=== PATIENT | female | born 1960 | race Caucasian/White ===

== ENCOUNTER 2021-08-07 16:37 | Emergency (ER) | payer OTHER ==
[~2021-08-07] VITALS: Ht 165.1 cm; Wt 106.5 kg
[2021-08-07] MEDS ORDERED: ACETAMINOPHEN 500 MG TABLET PO ONE (17:15)
[2021-08-07] MEDS ORDERED: IV RINGERS SOLUTION,LACTATED 1,000 ML IV ONE (17:15)
[2021-08-07] MEDS ORDERED: IOHEXOL 300 MG/ML 75 ML VIAL. IV ONE (17:15)
[2021-08-07] MEDS ORDERED: ONDANSETRON PF 4 MG/2 ML VIAL. IVP ONE (17:15)
[2021-08-07] MEDS ORDERED: DICYCLOMINE 20 MG/2 ML VIAL. IM ONE (17:15)
--- NOTE | 2021-08-07 17:27 | PHYS DOC ---
Past History Past Surgical History: , Knee Replacement (SAMY CARDENAS MD) Alcohol Use: None (SAMY CARDENAS MD) Adult General Chief Complaint Chief Complaint: ABDOMINAL PAIN HPI HPI The patient is a 61-year-old female with a history of hypertension, hyperlipidemia and insulin-dependent diabetes. She has no history of abdominal surgery in the past. She presents for evaluation of copious watery diarrhea today, about 10 episodes in total, the last few of which have had some partha blood in them. Associated nausea all day with 1 episode of nonbloody vomiting this morning. Associated low abdominal crampy discomfort, intermittent. No associated fevers, hematemesis or melena, upper respiratory congestion/rhinorrhea, cough, sore throat, shortness of breath or chest pain of any kind, specifically upper or right-sided abdominal pain of any kind, flank p ain, midline back pain, dysuria, hematuria, polyuria or oliguria, recent unusual travel, unusual foods, sick contacts with similar symptoms, recent antibiotic use. Patient is alert and pleasantly and appropriately interactive and in no acute distress with appropriate vital signs upon initial evaluation here in the emergency department. She is ambulatory with a narrow, steady gait to her emergency department bed. (SAMY CARDENAS MD) Review of Systems Review of Systems A 12 point review of systems was completed and was negative except where noted in HPI above. (SAMY CARDENAS MD) Current Medications Current Medications Current Medications Medications (Trade) Dose Ordered Sig/Nathaly Start Time Stop Time Status Last Admin Dose Admin Acetaminophen (Tylenol) 1,000 mg 1X ONCE 08/07/21 17:15 08/07/21 17:16 UNV Dicyclomine HCl (Bentyl) 20 mg 1X ONCE 08/07/21 17:15 08/07/21 17:16 UNV Iohexol (Omnipaque 300 Mg/ml) 75 ml 1X ONCE 08/07/21 17:15 08/07/21 17:16 UNV Lactated Ringer's 1,000 ml @ 999 mls/hr 1X ONCE 08/07/21 17:15 08/07/21 18:15 UNV Ondansetron HCl (Zofran) 4 mg 1X ONCE 08/07/21 17:15 08/07/21 17:16 UNV (SAMY CARDENAS MD) Allergies Allergies Allergies Coded Allergies Type Severity Reaction Last Updated Verified No Known Drug Allergies 1/19/22 No (SAMY CARDENAS MD) Physical Exam Physical Exam 61-year-old female appearing nontoxic and in no acute distress. Head is normocephalic and atraumatic. Neck is supple and nontender. Oropharynx is moist. Lungs are clear to auscultation at all stations. There is normal S1 and S2 without rubs or gallops and capillary refill is appropriate, less than 2 seconds globally. Abdomen is soft, nontender and nondistended. No reproducible tenderness to palpation anywhere. Skin is warm and dry without cyanosis, clubbing or edema. Psychiatrically, the patient demonstrates appropriate mood and affect and is alert. Evaluation of the extremities reveals BUEs and BLEs neurovascularly intact distally with strength 5 out of 5, sensation intact to l ight touch in all nerve distributions, radial, DP and PT pulses 2+ bilaterally, capillary refill less than 2 seconds, hands and feet warm and well-perfused. No dependent peripheral edema distally. No calf tenderness or swelling bilaterally. Homans test is negative bilaterally. (SAMY CARDENAS MD) Current Patient Data Vital Signs Vital Signs Date Time Temp Pulse Resp B/P (MAP) Pulse Ox O2 Delivery O2 Flow Rate FiO2 08/07/21 16:49 98.5 96 16 130/77 (94) 98 Room Air (SAMY CARDENAS MD) EKG EKG [] (SAMY CARDENAS MD) Radiology/Procedures Radiology/Procedures [] (SAMY CARDENAS MD) Heart Score Risk Factors: Risk Factors: DM, Current or recent (<one month) smoker, HTN, HLP, family history of CAD, obesity. Risk Scores: Risk Factors: DM, Current or recent (<one month) smoker, HTN, HLP, family history of CAD, obesity. (SAMY CARDENAS MD) C/O Chest Pain: No (TATI BURDEN MD) Course & Med Decision Making Course & Med Decision Making Well-appearing 61-year-old female with normal vital signs and reassuring clinical examination presenting for several episodes of hematochezia today with some mild crampy lower abdominal discomfort intermittently over the course of the day. Has also had an episode of nonbloody vomiting. Will check labs incl uding Hemoccult and stool studies if the patient can produce a sample and will give IV fluids and medication for discomfort and nausea as noted. Will obtain a CT scan of the abdomen and pelvis with IV contrast. We will then reevaluate. 1800: Patient resting comfortably in no acute distress on serial reassessments. Transition of care to Dr. Burden pending rest of lab work, advanced imaging and reevaluation for disposition. (SAMY CARDENAS MD) Course & Med Decision Making Patient care handed off to me at checkout pending labs and imaging. Patient alert and oriented no acute distress, vital signs nonconcerning. Patient asymptomatic. Patient had bowel movement here in the ED that was normal. Laboratory analysis not concerning CT notable for probable colitis. Discussed all findings with patient. Started on antibiotics, antiemetics and pain medicine. Discussed diet at home over the next 3 to 5 days. Advised to follow- up in the morning with primary care physician and set up an ER follow-up visit sometime in the next week for reevaluation. Gave return precautions to the ED. Patient grateful, verbalized understanding and agreed with plan of discharge. (TATI BURDEN MD) Dragon Disclaimer Dragon Disclaimer This electronic medical record was generated, in whole or in part, using a voice recognition dictation system. (SAMY CARDENAS MD) Departure Departure: Impression: Primary Impression: Hematochezia Additional Impression: Colitis Disposition: HOME / SELF CARE / HOMELESS Condition: STABLE Referrals: PCP,UNKNOWN (PCP) PAULA CORONA Patient Instructions: Colitis Additional Instructions: Thank you for coming into the emergency department tonight and allowing us to take care of you. Please read the attached information carefully to go over things we discussed. Please take your antibiotics, pain medicine and nausea medicine as prescribed. Please adjust your diet over the next 3 to 5 days as we discussed. Please call your primary care physician in the morning to update on your ED visit and set up a follow-up as soon as possible. Please come back with new or concerning symptoms as we discussed. Scripts Amoxicillin/Potassium Clav (AUGMENTIN 875-125 TABLET) 1 Each Tablet 1 TAB PO BID for colitis for 10 Days, #19 TAB 0 Refills Prov: TATI BURDEN MD 08/07/21 Problem Qualifiers SAMY CARDENAS MD Aug 07, 2021 17:26 TATI BURDEN MD Aug 07, 2021 21:12
[2021-08-07 17:38] LABS: BASO % 0 % (0-3); EOS % 0 % (0-3); HEMATOCRIT 37.7 % (36.0-47.0); HEMOGLOBIN 12.6 g/dL (12.0-15.5); LYMPH # 0.7 x10^3/uL (1.0-4.8); LYMPH % 6 % (24-48); MEAN CORPUSCULAR HEMOGLOBIN 27 pg (25-35); MEAN CORPUSCULAR HGB CONC 33 g/dL (31-37); MEAN CORPUSCULAR VOLUME 82 fL (79-100); MONO # 0.6 x10^3/uL (0.0-1.1); MONO % 5 % (0-9); NEUT # 9.7 x10^3uL (1.8-7.7); NEUT % 88 % (31-73); PLATELET COUNT 259 x10^3/uL (140-400); RED BLOOD COUNT 4.59 x10^6/uL (3.50-5.40); RED CELL DISTRIBUTION WIDTH 15.8 % (11.5-14.5); WHITE BLOOD COUNT 11.1 x10^3/uL (4.0-11.0)
[2021-08-07 17:39] LABS: CALCIUM 9.4 mg/dL (8.5-10.1); GFR 56.6; POTASSIUM 4.2 mmol/L (3.5-5.1)
[2021-08-07 17:40] LABS: FECAL OB PT POSITIVE (NEG)
[2021-08-07 17:45] LABS: ALBUMIN 4.3 g/dL (3.4-5.0); ALBUMIN/GLOBULIN RATIO 1.3 (1.0-1.7); TOTAL BILIRUBIN 0.6 mg/dL (0.2-1.0); TOTAL PROTEIN 7.5 g/dL (6.4-8.2)
[2021-08-07 18:28] LABS: BACTERIA,URINE 0 /HPF (0-FEW); BILIRUBIN,URINE NEG (NEG); CLARITY,URINE CLEAR; COLOR,URINE YELLOW; GLUCOSE,URINE NEG (NEG); NITRITE,URINE NEG (NEG); RBC,URINE 0 /HPF (0-2); SQUAMOUS EPITHELIAL CELL,UR FEW /LPF; UROBILINOGEN,URINE 0.2 mg/dL (0.2 mg/dL); WBC,URINE OCC /HPF (0-4)
--- NOTE | 2021-08-07 19:38 | RAD ---
Exam: CT abdomen/pelvis with intravenous contrast Indication: Hematochezia, lower abdominal pain. Comparison: None Technique: Helical CT imaging performed of the abdomen and pelvis after the intravenous administratio n of 60 mL Omnipaque 300 contrast. Sagittal and coronal reformats were obtained. One or more of the following individualized dose reduction techniques were utilized for this examinat ion: 1. Automated exposure control 2. Adjustment of the mA and/or kV according to patient size 3. Use of iterative reconstruction technique. Findings: Lower chest: Lung bases are clear. Heart is normal in size. Liver: The liver is mildly enlarged. No focal liver lesion. Gallbladder/Biliary Tree: Normal. Pancreas: Normal. Spleen: Normal. Adrenal Glands: Normal. Kidneys/Ureters/Bladder: Kidneys are normal in size and enhance symmetrically. Ureters and bladder ar e normal. Reproductive Organs: Uterus is anteverted. There is no adnexal mass. Stomach, small bowel, and colon: The stomach is normal. There is colonic wall thickening from the spl enic flexure through the rectum consistent with colitis. Mild pericolonic fat stranding the rest the colon is normal. Appendix is normal. No pneumatosis. Vasculature: No aortic aneurysm. Mild calcified aortic atherosclerosis. Lymph Nodes: No lymphadenopathy. Peritoneum and retroperitoneum: No free fluid or free air. Bones: No acute osseous abnormality. There is 7 mm anterolisthesis of L4 and L5 related to facet arth rosis. Moderate degenerative disc disease in the lower lumbar spine. Other: Diastases recti. IMPRESSION: 1. Mild colitis involving the splenic flexure through the rectum. 2. Mild hepatomegaly. Electronically signed by: Adenike Jesus MD (08/07/2021 7:36 PM) [id number]
[2021-08-07] MEDS ORDERED: AMOX1TAB61 PO (21:00)
[2021-08-07] MEDS ORDERED: ONDANSETRON 4MG ODT 4TABLET STARTPACK. PO ONE (21:15)
[2021-08-07] MEDS ORDERED: ACETAMINOPHEN/CODEINE 300/30MG 4TABLET STARTPACK. PO ONE (21:15)
[2021-08-07 21:16] VITALS: BP 132/78
== END 2021-08-07 21:25 | disposition home or self-care (01) ==
LOC: ER 16:37
DX: K52.9 Noninfective gastroenteritis and colitis, unspecified (principal); K92.1 Melena; I10 Essential (primary) hypertension; E78.5 Hyperlipidemia, unspecified; E11.9 Type 2 diabetes mellitus without complications
CPT/HCPCS: 36415; 74177; 80053; 81001; 82274; 83690; 85025; 96361; 96372; 96374; 99284; J0500; J2405; J7120; Q0162; Q9967